=== PATIENT | female | born 1945 | race African-American/Black ===

== ENCOUNTER 2016-10-26 17:28 | Emergency (ER) ==
[2016-10-26 17:41] VITALS: BP 218/91; TEMP 98.9; BMI 34.0
[2016-10-26] MEDS ORDERED: ZESTRIL PO STA (17:47)
[2016-10-26] MEDS ORDERED: ZESTRIL ONE (18:01)
[2016-10-26 18:19] LABS: BASOPHILS % (AUTO) 0.4 % (0.0-3.0); EOSINOPHILS # (AUTO) 0.1 K/ul (0.0-0.7); EOSINOPHILS % (AUTO) 2.5 % (0.0-7.0); HEMATOCRIT 38.8 % (37.0-47.0); HEMOGLOBIN 13.4 g/dl (12.0-16.0); IMMATURE GRANULOCYTE % (AUTO) 0.2 % (0.0-5.0); LYMPHOCYTES # (AUTO) 2.5 K/uL (0.60-3.4); LYMPHOCYTES % (AUTO) 52.4 (10.0-50.0); MEAN CORPUSCULAR HEMOGLOBIN 28.9 pg (27.0-31.0); MEAN CORPUSCULAR HGB CONC 34.5 (31.8-35.4); MEAN CORPUSCULAR VOLUME 83.8 fl (81.0-99.0); MONOCYTES # (AUTO) 0.6 K/uL (0.4-2.0); MONOCYTES % (AUTO) 12.3 (0-10); NEUTROPHILS # (AUTO) 1.5 K/ul (2.0-6.9); NEUTROPHILS % (AUTO) 32.2; PLATELET COUNT 165 10^3/uL (140-440); RED BLOOD COUNT 4.63 10^6/ul (4.20-5.40); WHITE BLOOD COUNT 4.73 K/ul (4.6-10.2)
[2016-10-26 18:37] LABS: ALBUMIN 3.4 g/dL (3.4-5.0); ALBUMIN/GLOBULIN RATIO 1.03; ANION GAP 12.2; BILIRUBIN,TOTAL 0.65 mg/dL (0.00-1.20); BUN/CREATININE RATIO 21.79; CALCIUM 9.9 mg/dL (8.2-10.2); CREATININE 0.78 mg/dL (0.60-1.30); POTASSIUM 3.2 mmol/L (3.5-5.10); TOTAL PROTEIN 6.7 g/dL (5.8-8.1)
[2016-10-26 18:44] LABS: CREATINE KINASE 89 U/L
--- NOTE | 2016-10-26 18:52 | ED.PDOC ---
General ED Provider: Dr. CELIA FALCON Chief Complaint: Hypertension Stated Complaint: hypertension Time Seen by Physician: 17:29 Mode of Arrival: Walk-In Information Source: Patient Exam Limitations: No limitations Primary Care Provider: SMOOTH PATE Nursing and Triage Documentation Reviewed and Agree: Yes Cardiovascular Complaint Exam - Chest Pain Complaint/Exam Onset: Gradual Duration: blood pressure high prior to arrival had no chest pain Symptoms Are: Still present Timing: Constant Current Severity: None Pain Radiates: Reports: None Aggravating: Reports: None Alleviating: Reports: None Associated Signs and Symptoms: Reports: Hemoptysis Related Surgical History: Reports: None History of Healthcare-Acquired Pneumonia: Reports: No AMI/ACS Risk Factors: Reports: Diabetes, Obesity, Hypertension TAD Risk Factors: Reports: Hypertension Pulmonary Embolism Risk Factors: Reports: None Prior Care for this Complaint: No Recent Stress Test: No Recent Echo/LV Function: No JVD Present: No Subcutaneous Emphysema Present: No Diminshed Breath Sounds: No Reproducible Chest Wall Pain: No Bilateral Pulses Present: No Unequal Pulses Noted: No If Risk Factors for AMI/ACS Consider: EKG, Cardiac Enzymes Review of Systems - Review Of Systems Constitutional: Reports: Malaise Eyes: Reports: No symptoms Ears, Nose, Mouth, Throat: Reports: No symptoms Respiratory: Reports: No symptoms Cardiac: Reports: No symptoms GI: Reports: No symptoms : Reports: No symptoms Musculoskeletal: Reports: No symptoms Skin: Reports: No symptoms Neurological: Reports: No symptoms Endocrine: Reports: No symptoms Hematologic/Lymphatic: Reports: No symptoms All Other Systems: Reviewed and Negative Past Medical History - Past Medical History Previously Healthy: Yes Endocrine: Reports: DM 2 Cardiovascular: Reports: Hypertension Respiratory: Reports: None Hematological: Reports: None Gastrointestinal: Reports: None Genitourinary: Reports: None Neuro/Psych: Reports: None Musculoskeletal: Reports: None Cancer: Reports: None Last Menstrual Period: POST MENOPAUSAL - Surgical History General Surgical History: Reports: None - Family History Family History: Reports: None - Social History Smoking Status: Never smoker Hx Substance Use: No Alcohol Screening: None - Immunizations Tetanus Shot up to Date: No Physical Exam - Physical Exam Appearance: Well-appearing, No pain distress, Well-nourished Eyes: ERIKA, EOMI, Conjunctiva clear ENT: Ears normal, Nose normal, Oropharynx normal Respiratory: Airway patent, Breath sounds clear, Breath sounds equal, Respirations nonlabored Cardiovascular: RRR, Pulses normal, No rub, No murmur GI/: Soft, Nontender, No masses, Bowel sounds normal, No Organomegaly Musculoskeletal: Normal strength, ROM intact, No edema, No calf tenderness Skin: Warm, Dry, Normal color Neurological: Sensation intact, Motor intact, Reflexes intact, Cranial nerves intact, Alert, Oriented Psychiatric: Affect appropriate, Mood appropriate Interpretation - Pattern Changer Rate: Evan Rhythm: Sinus - EKG Interpretation Rate: Evan Rhythm: Sinus Ectopy: None [place]: NL ST Segment: Normal Critical Care Note - Critical Care Note Total Time (mins): 0 Course - Course Hematology/Chemistry: 10/26/16 18:15 10/26/16 18:15 Orders, Labs, Meds: Lab Review 10/26/16 10/26/16 18:15 18:17 WBC 4.73 RBC 4.63 Hgb 13.4 Hct 38.8 MCV 83.8 MCH 28.9 MCHC 34.5 RDW Coeff of Nallely 14.0 Plt Count 165 Immature Gran % (Auto) 0.2 Neut % (Auto) 32.2 Lymph % (Auto) 52.4 H [place] % (Auto) 12.3 H Eos % (Auto) 2.5 Baso % (Auto) 0.4 Immature Gran # (Auto) 0.0 Neut # 1.5 L Lymph # 2.5 [place] # 0.6 Eos # 0.1 Baso # 0.0 Sodium 140 Potassium 3.2 L Chloride 104 Carbon Dioxide 27 Anion Gap 12.2 BUN 17 Creatinine 0.78 Estimated GFR (MDRD) 89.00 BUN/Creatinine Ratio 21.79 Glucose 84 Calcium 9.9 Total Bilirubin 0.65 AST 31 ALT 44 Alkaline Phosphatase 72 Total Creatine Kinase 89 Troponin I < 0.0100 Total Protein 6.7 Albumin 3.4 Globulin 3.3 Albumin/Globulin Ratio 1.03 Orders Category Date Time Status EKG-(ED ONLY) Stat CARDIO 10/26/16 18:05 Ordered CBC W/ AUTO DIFF Stat LAB 10/26/16 18:15 Completed COMPREHENSIVE METABOLIC PANEL Stat LAB 10/26/16 18:15 Completed CREATINE KINASE Stat LAB 10/26/16 18:17 Completed TROPONIN I Stat LAB 10/26/16 18:17 Completed Lisinopril [Zestril] MEDS 10/26/16 18:01 Discontinued 40 mg .ROUTE .STK-MED ONE Lisinopril [Zestril] MEDS 10/26/16 17:47 Discontinued 40 mg PO ONCE STA Medications Discontinued Medications Generic Name Dose Route Start Last Admin Trade Name Vanessa PRDavid Reason Stop Dose Admin Lisinopril 40 mg 10/26/16 17:47 10/26/16 18:08 Zestril PO 10/26/16 17:48 Not Given ONCE STA Vital Signs: Temp Pulse Resp BP Pulse Ox 10/26/16 17:29 98.9 F 59 L 18 218/91 H 96 HARLEY Risk Score HARLEY Risk Score: Risk Score Odds of by 30D 0 0.1 (0.1-0.2) 1 0.3 (0.2-0.3) 2 0.4 (0.3-0.5) 3 0.7 (0.6-0.9) 4 1.2 (1.0-1.5) 5 2.2 (1.9-2.6) 6 3.0 (2.5-3.6) 7 4.8 (3.8-6.1) Departure - Departure Disposition: TSF SHORT-TRM HOSP Discharge Problem: Hypertensive urgency Instructions: Hypertension (ED) Condition: Good Allergies/Adverse Reactions: Allergies No Known Allergies Allergy (Unverified 10/26/16 17:37) Home Medications: Ambulatory Orders Amlodipine Besylate [Norvasc] 10 mg PO DAILY 10/26/16 Aspirin [Aspirin Chewable] 81 mg PO DAILY 10/26/16 Clonidine HCl 0.2 mg PO BID 10/26/16 Hydralazine HCl 50 mg PO TID 10/26/16 Losartan/Hydrochlorothiazide [Losartan-Hctz 100-12.5 mg Tab] 1 tab PO DAILY 02/01 Metoprolol Succinate [Toprol Xl] 100 mg PO DAILY 10/26/16 Saxagliptin HCl [Onglyza] 5 mg PO DAILY 10/26/16
== END 2016-10-26 19:45 | disposition short-term general hospital (02) ==
LOC: ED 17:28
DX: I16.0 Hypertensive urgency (principal); R04.2 Hemoptysis; E11.9 Type 2 diabetes mellitus without complications; E66.9 Obesity, unspecified; Z79.899 Other long term (current) drug therapy
CPT/HCPCS: 36415; 80053; 82550; 84484; 85025; 93005; 93010; 99285

== ENCOUNTER 2017-02-18 11:04 | Outpatient (CLI) ==
[2017-02-18 11:23] LABS: BASOPHILS % (AUTO) 0.6 % (0.0-3.0); EOSINOPHILS # (AUTO) 0.1 K/ul (0.0-0.7); EOSINOPHILS % (AUTO) 1.9 % (0.0-7.0); HEMATOCRIT 37.2 % (37.0-47.0); IMMATURE GRANULOCYTE % (AUTO) 0.3 % (0.0-5.0); LYMPHOCYTES # (AUTO) 1.4 K/uL (0.60-3.4); LYMPHOCYTES % (AUTO) 39.1 (10.0-50.0); MEAN CORPUSCULAR HEMOGLOBIN 29.7 pg (27.0-31.0); MEAN CORPUSCULAR HGB CONC 34.9 (31.8-35.4); MEAN CORPUSCULAR VOLUME 85.1 fl (81.0-99.0); MONOCYTES # (AUTO) 0.4 K/uL (0.4-2.0); MONOCYTES % (AUTO) 12.2 (0-10); NEUTROPHILS # (AUTO) 1.7 K/ul (2.0-6.9); NEUTROPHILS % (AUTO) 45.9; PLATELET COUNT 169 10^3/uL (140-440); RED BLOOD COUNT 4.37 10^6/ul (4.20-5.40); WHITE BLOOD COUNT 3.61 K/ul (4.6-10.2)
[2017-02-18 12:09] LABS: ALBUMIN 3.4 g/dL (3.4-5.0); ALBUMIN/GLOBULIN RATIO 0.87; ANION GAP 10.5; BILIRUBIN,TOTAL 0.77 mg/dL (0.00-1.20); BUN/CREATININE RATIO 22.78; CALCIUM 9.6 mg/dL (8.2-10.2); CHOL/HDL RATIO 3.1 (4.5-5.5); CREATININE 0.79 mg/dL (0.60-1.30); POTASSIUM 3.5 mmol/L (3.5-5.10); TOTAL PROTEIN 7.3 g/dL (5.8-8.1)
== END 2017-02-18 11:05 | disposition home or self-care (01) ==
LOC: LAB 11:04
DX: Z12.31 Encounter for screening mammogram for malignant neoplasm of breast (principal); E11.9 Type 2 diabetes mellitus without complications; I10 Essential (primary) hypertension; Z86.39 Personal history of other endocrine, nutritional and metabolic disease
CPT/HCPCS: 36415; 80053; 80061; 83036; 84443; 85025

== ENCOUNTER 2017-02-25 14:07 | Emergency (ER) ==
[2017-02-25 14:10] VITALS: BP 162/79; TEMP 97.8; BMI 35.9
--- NOTE | 2017-02-25 15:05 | ED.PDOC ---
General ED Provider: Dr. CELIA FALCON Chief Complaint: Hypertension Stated Complaint: hypertension Time Seen by Physician: 14:00 (seen with yonas ) Mode of Arrival: Wheelchair Information Source: Patient Exam Limitations: No limitations Primary Care Provider: SMOOTH PATE Referred to ED by: Other (traige B/P SYSTOLIC OF 160) Nursing and Triage Documentation Reviewed and Agree: Yes (no chest pain) Cardiovascular Complaint Exam - Hypertension Complaint/Exam Onset/Duration: AT HOME TODAY Symptoms Are: Resolved Timing: Intermittent Reported B/P Prior to Arrival: 200 SYSTOLIC Aggravating: Reports: None Alleviating: Reports: None Associated Signs and Symptoms: Denies: Chest pain, Vision changes, Anxiety, Recent stress, Headache, Numbness, Tingling, Weakness, Dizziness, Short of air, Swelling Related History: Reports: Similar episode Related Surgical History: Reports: None Cardiac Risk Factors: Reports: Hypertension Recent Change in Medications: No A/V [place]: No Papilledema Present: No JVD Present: No Carotid Bruit Present: No Femoral Pulses Bounding: No Differential Diagnoses: Hypertension Review of Systems - Review Of Systems Constitutional: Reports: No symptoms Eyes: Reports: No symptoms Ears, Nose, Mouth, Throat: Reports: No symptoms Respiratory: Reports: No symptoms Cardiac: Reports: No symptoms GI: Reports: No symptoms : Reports: No symptoms Musculoskeletal: Reports: No symptoms Skin: Reports: No symptoms Neurological: Reports: No symptoms Endocrine: Reports: No symptoms Hematologic/Lymphatic: Reports: No symptoms All Other Systems: Reviewed and Negative Past Medical History - Past Medical History Previously Healthy: Yes Endocrine: Reports: DM 2 Cardiovascular: Reports: Hypertension Respiratory: Reports: None Hematological: Reports: None Gastrointestinal: Reports: None Genitourinary: Reports: None Neuro/Psych: Reports: None Musculoskeletal: Reports: None Cancer: Reports: None Last Menstrual Period: none - Surgical History General Surgical History: Reports: None - Family History Family History: Reports: None - Social History Smoking Status: Never smoker Hx Substance Use: No Alcohol Screening: None Physical Exam - Physical Exam Appearance: Well-appearing, No pain distress, Well-nourished Eyes: ERIKA, EOMI, Conjunctiva clear ENT: Ears normal, Nose normal, Oropharynx normal Respiratory: Airway patent, Breath sounds clear, Breath sounds equal, Respirations nonlabored Cardiovascular: RRR, Pulses normal, No rub, No murmur GI/: Soft, Nontender, No masses, Bowel sounds normal, No Organomegaly Musculoskeletal: Normal strength, ROM intact, No edema, No calf tenderness Skin: Warm, Dry, Normal color Neurological: Sensation intact, Motor intact, Reflexes intact, Cranial nerves intact, Alert, Oriented Psychiatric: Affect appropriate, Mood appropriate Critical Care Note - Critical Care Note Total Time (mins): 0 Course - Course Vital Signs: Temp Pulse Resp BP Pulse Ox 02/25/17 14:07 97.8 F 67 18 162/79 H 97 HARLEY Risk Score HARLEY Risk Score: Risk Score Odds of by 30D 0 0.1 (0.1-0.2) 1 0.3 (0.2-0.3) 2 0.4 (0.3-0.5) 3 0.7 (0.6-0.9) 4 1.2 (1.0-1.5) 5 2.2 (1.9-2.6) 6 3.0 (2.5-3.6) 7 4.8 (3.8-6.1) Departure - Departure Time of Disposition: 15:04 (B/P WHILE AT ED SYSTOLIC OF 150 RANGE FREE OF PAIN ) Disposition: HOME SELF-CARE Discharge Problem: Hypertension Qualifiers: Hypertension type: unspecified Qualified Code(s): I10 - Essential (primary) hypertension Instructions: Hypertension (ED) Condition: Good Pt referred to PMD for follow-up: Yes Additional Instructions: Please call your Family Physician as soon as possible to schedule a follow-up appointment. Allergies/Adverse Reactions: Allergies No Known Allergies Allergy (Verified 02/25/17 14:10) Home Medications: Ambulatory Orders Aspirin [Aspirin Chewable] 81 mg PO DAILY 10/26/16 Clonidine HCl 0.2 mg PO BID 10/26/16 Hydralazine HCl 50 mg PO TID 10/26/16 Losartan/Hydrochlorothiazide [Losartan-Hctz 100-12.5 mg Tab] 1 tab PO DAILY 02/01 Saxagliptin HCl [Onglyza] 5 mg PO DAILY 10/26/16 Linagliptin [Tradjenta] 5 mg PO DAILY 02/25/17 Disposition Discussed With: Patient
== END 2017-02-25 15:28 | disposition home or self-care (01) ==
LOC: ED 14:07
DX: I10 Essential (primary) hypertension (principal)
CPT/HCPCS: 99282

== ENCOUNTER 2017-07-18 09:05 | Outpatient (CLI) | payer OTHER | END 2017-07-18 09:06 | disposition home or self-care (01) | LOC: LAB 09:05 | DX: Z12.31 Encounter for screening mammogram for malignant neoplasm of breast (principal); R73.9 Hyperglycemia, unspecified; I10 Essential (primary) hypertension; Z86.39 Personal history of other endocrine, nutritional and metabolic disease | CPT/HCPCS: 36415; 80053; 80061; 83036; 84443; 85025 ==

== ENCOUNTER 2018-04-29 12:39 | Emergency (ER) | payer OTHER ==
[2018-04-29 12:47] VITALS: BP 179/96; TEMP 99.7
[2018-04-29 13:19] VITALS: BMI 34.5
--- NOTE | 2018-04-29 13:21 | ED.PDOC ---
General ED Provider: Dr. MIMA SIMON Chief Complaint: Nausea/Vomiting Stated Complaint: Sick to stomach-vomited this morning after eating soup and eatting an orange/denies other complaint and no symptoms since Time Seen by Physician: 13:00 Mode of Arrival: Wheelchair Information Source: Patient Exam Limitations: No limitations Primary Care Provider: SMOOTH PATE Nursing and Triage Documentation Reviewed and Agree: Yes Does patient meet sepsis criteria?: No System Inflammatory Response Syndrome: Not Applicable Sepsis Protocol: For patient's 13 years and over: Temp is 96.8 and below OR 101 and greater Pulse >90 BPM Resp >20/minute Acutely Altered Mental Status Are patient's symptoms suggestive of a new infection, such as: -Pneumonia -Skin, Soft Tissue -Endocarditis -UTI -Bone, Joint Infection -Implantable Device -Acute Abdominal Infection -Wound Infection -Meningitis -Blood Stream Catheter Infection -Unknown GI Complaint Exam - Vomiting/Diarrhea Complaint/Exam Onset/Duration: This AM Symptoms Are: Resolved Initial Severity: Moderate Current Severity: None Character of Vomiting: Reports: Bilious Character of Diarrhea: Denies: Bloody, Watery, Mucoid, Malodorous Aggravating: Reports: Food, Liquids Alleviating: Reports: Clear liquids Associated Signs and Symptoms: Reports: Cramping. Denies: Dizziness, Light- headedness, Melena, Hematemesis, Fever, Abdominal pain Non-GI Risk Factors: Reports: None Surgical Obstruction Risk Factors: Reports: None Abdominal Findings: Present: None [place]ul Respirations Present: No Differential Diagnoses: Gastritis, Bacterial Gastroenteritis Review of Systems - Review Of Systems Constitutional: Reports: No symptoms Eyes: Reports: No symptoms Ears, Nose, Mouth, Throat: Reports: No symptoms Respiratory: Reports: No symptoms Cardiac: Reports: No symptoms GI: Reports: Diarrhea, Nausea : Reports: No symptoms Musculoskeletal: Reports: No symptoms Skin: Reports: No symptoms Neurological: Reports: No symptoms Endocrine: Reports: No symptoms Hematologic/Lymphatic: Reports: No symptoms All Other Systems: Reviewed and Negative Past Medical History - Past Medical History Previously Healthy: Yes Endocrine: Reports: DM 2 Cardiovascular: Reports: Hypertension Respiratory: Reports: None Hematological: Reports: None Gastrointestinal: Reports: None Genitourinary: Reports: None Neuro/Psych: Reports: None Musculoskeletal: Reports: None Cancer: Reports: None Last Menstrual Period: none - Surgical History General Surgical History: Reports: None - Family History Family History: Reports: None - Social History Smoking Status: Never smoker Hx Substance Use: No Alcohol Screening: None Physical Exam - Physical Exam Appearance: Well-appearing, Obese Ill-appearing: None Pain Distress: None Eyes: ERIKA, EOMI, Conjunctiva clear ENT: Ears normal, Nose normal, Oropharynx normal Neck: Supple Respiratory: Airway patent, Breath sounds clear, Breath sounds equal, Respirations nonlabored Cardiovascular: RRR, Pulses normal, No rub, No murmur GI/: Soft, Nontender, No masses, Bowel sounds normal, No Organomegaly Musculoskeletal: Normal strength, ROM intact, No edema, No calf tenderness Skin: Warm, Dry, Normal color Neurological: Sensation intact, Motor intact, Reflexes intact, Cranial nerves intact, Alert, Oriented Psychiatric: Affect appropriate, Mood appropriate Re-Evaluation - Re-Evaluation Time of Re-Evaluation: 15:00 Status: Improved Vital Signs Stable: Yes Appearance: NAD Lungs: Clear Skin: Warm and Dry Neuro: Alert and Oriented X3 CV: RRR Critical Care Note - Critical Care Note Total Time (mins): 0 Course - Course Hematology/Chemistry: 04/29/18 13:36 04/29/18 13:36 Orders, Labs, Meds: Lab Review 04/29/18 04/29/18 04/29/18 12:55 13:36 13:36 WBC 5.86 RBC 5.13 Hgb 14.7 Hct 43.7 MCV 85.2 MCH 28.7 MCHC 33.6 RDW Coeff of Nallely 14.2 Plt Count 157 Immature Gran % (Auto) 0.3 Neut % (Auto) 87.8 Lymph % (Auto) 8.2 L [place] % (Auto) 3.2 Eos % (Auto) 0.3 Baso % (Auto) 0.2 Immature Gran # (Auto) 0.0 Neut # (Auto) 5.1 Lymph # (Auto) 0.5 L [place] # (Auto) 0.2 L Eos # (Auto) 0.0 Baso # (Auto) 0.0 Sodium 141.3 Potassium 3.48 L Chloride 103.1 Carbon Dioxide 29.4 Anion Gap 12.28 BUN 18.1 H Creatinine 0.64 Estimated GFR (MDRD) 111.00 BUN/Creatinine Ratio 28.28 Glucose 153.7 H Calcium 9.43 Total Bilirubin 0.91 AST 40.1 H ALT 47.7 H Alkaline Phosphatase 90.9 Total Protein 8.28 H Albumin 4.29 Globulin 3.99 Albumin/Globulin Ratio 1.07 Urine Color Urine Clarity Urine pH Ur Specific [place] Urine Protein Urine Glucose (UA) Urine Ketones Urine Blood Urine Nitrite Urine Bilirubin Urine Urobilinogen Ur Leukocyte Esterase Urine Microscopic RBC Urine Microscopic WBC Ur Squamous Epith Cells Amorphous Sediment Influ A Molecular Assay Negative by naat Influ B Molecular Assay Negative by naat 04/29/18 14:10 WBC RBC Hgb Hct MCV MCH MCHC RDW Coeff of Nallely Plt Count Immature Gran % (Auto) Neut % (Auto) Lymph % (Auto) [place] % (Auto) Eos % (Auto) Baso % (Auto) Immature Gran # (Auto) Neut # (Auto) Lymph # (Auto) [place] # (Auto) Eos # (Auto) Baso # (Auto) Sodium Potassium Chloride Carbon Dioxide Anion Gap BUN Creatinine Estimated GFR (MDRD) BUN/Creatinine Ratio Glucose Calcium Total Bilirubin AST ALT Alkaline Phosphatase Total Protein Albumin Globulin Albumin/Globulin Ratio Urine Color Dark Urine Clarity Clear Urine pH 5.5 Ur Specific [place] >=1.030 Urine Protein 1+ Urine Glucose (UA) Negative Urine Ketones Negative Urine Blood Trace-intact Urine Nitrite Negative Urine Bilirubin Negative Urine Urobilinogen 0.2 Ur Leukocyte Esterase Trace Urine Microscopic RBC 0-2 Urine Microscopic WBC 0-2 Ur Squamous Epith Cells 2-5 Amorphous Sediment 2+ Influ A Molecular Assay Influ B Molecular Assay Orders Category Date Time Status CBC W/ AUTO DIFF Stat LAB 04/29/18 13:36 Completed CMP [COMPREHENSIVE METABOLIC PANEL] Stat LAB 04/29/18 13:36 Completed FLU A/B MOLECULAR Stat LAB 04/29/18 12:55 Completed RAPID STREP SCREEN [MOLECULAR GROUP A STREP] Stat LAB 04/29/18 12:55 Completed UA [URINALYSIS C & S IF INDICATED] Stat LAB 04/29/18 14:10 Completed Vital Signs: Temp Pulse Resp BP Pulse Ox 04/29/18 12:41 99.7 F H 73 16 179/96 H 96 Departure - Departure Time of Disposition: 15:00 Disposition: HOME SELF-CARE Discharge Problem: Vomiting, Gastritis Instructions: Acute Nausea and Vomiting (ED), Gastritis (ED) Condition: Good Pt referred to PMD for follow-up: Yes IPMP verified?: No Additional Instructions: Encouraged clear liquids Take zofran for further nausea Take Pepcid AC as needed for stomach Take Lomotil for cramping or diarrhea Allergies/Adverse Reactions: Allergies No Known Allergies Allergy (Verified 04/29/18 12:47) Home Medications: Ambulatory Orders Hydralazine HCl 50 mg PO TID 10/26/16 Losartan/Hydrochlorothiazide [Losartan-Hctz 100-12.5 mg Tab] 1 tab PO DAILY 02/01 Amlodipine Besylate [Norvasc] 10 mg PO DAILY 04/29/18 Diphenoxylate HCl/Atropine [Lomotil] 1 tab PO TID PRN #15 tablet 04/29/18 Metoprolol Succinate [Toprol Xl] 200 mg PO DAILY 04/29/18 Ondansetron [Zofran Odt] 4 mg PO Q8H PRN #7 tab.rapdis 04/29/18 Disposition Discussed With: Patient, Family
== END 2018-04-29 15:23 | disposition home or self-care (01) ==
LOC: ED 12:39
DX: K29.70 Gastritis, unspecified, without bleeding (principal); E11.9 Type 2 diabetes mellitus without complications; I10 Essential (primary) hypertension
CPT/HCPCS: 36415; 80053; 81001; 85025; 87502; 87651; 99283

== ENCOUNTER 2021-10-08 12:59 | Inpatient (IN) ==
[2021-10-08] MEDS ORDERED: SODIUM CHLORIDE 1,000 ML IV STA (13:05)
--- NOTE | 2021-10-08 13:24 | ED.PDOC ---
General ED Provider: Dr. MIMA TERESA Chief Complaint: Weakness Stated Complaint: ems resp to lift assist--patient unable to ambulate due to weakness Time Seen by Provider: 10/08/21 13:04 Mode of Arrival: Ambulance Information Source: Patient and EMT Exam Limitations: No limitations Primary Care Provider: MEDHAT BOSWELL Nursing and Triage Documentation Reviewed and Agree: Yes Does patient meet sepsis criteria?: No System Inflammatory Response Syndrome: Not Applicable Sepsis Protocol: For patient's 13 years and over: Temp is 96.8 and below OR 101 and greater Pulse >90 BPM Resp >20/minute Acutely Altered Mental Status Are patient's symptoms suggestive of a new infection, such as: -Pneumonia -Skin, Soft Tissue -Endocarditis -UTI -Bone, Joint Infection -Implantable Device -Acute Abdominal Infection -Wound Infection -Meningitis -Blood Stream Catheter Infection -Unknown Miscellaneous Complaint Exam Complex/Multi-System Complaint/Exam Onset/Duration: 24hrs Symptoms Are: Still present Episodes Lasting: Minutes Initial Severity: Mild Current Severity: Mild Location of Pain: no pain Associated Signs and Symptoms: Reports Weakness, Short of air and Cough Recent Echo/LV Function: No Respiratory Distress: None JVD Present: No Tachypnea Present: No Stridor Present: No Abdominal Findings: Present Normal findings Glascow Coma Scale (see protocol): 15 Focal Weakness: Present None Focal Sensory Loss: Present None Gait: Normal Gag Reflex Present: No Babinski Sign: Negative Right and Negative Left Skin Findings: Present Normal findings Joint Swelling Present: No In-Dwelling Device Present: No Review of Systems Review Of Systems Constitutional: Reports Weakness Eyes: Reports No symptoms Ears, Nose, Mouth, Throat: Reports No symptoms Respiratory: Reports No symptoms Cardiac: Reports No symptoms GI: Reports No symptoms : Reports No symptoms Musculoskeletal: Reports No symptoms Skin: Reports No symptoms Neurological: Reports No symptoms Endocrine: Reports No symptoms Hematologic/Lymphatic: Reports No symptoms All Other Systems: Reviewed and Negative PFSH Female Reproductive History Menstrual Hx Hysterectomy: No Hx Tubal Ligation: Yes Physical Exam Physical Exam Appearance: Reports Well-appearing Ill-appearing: None Pain Distress: None Eyes: Reports ERIKA, EOMI and Conjunctiva clear ENT: Reports Ears normal, Nose normal and Oropharynx normal Neck: Supple Respiratory: Reports Airway patent, Breath sounds clear and Breath sounds equal Cardiovascular: Reports RRR and No rub GI/: Reports Soft, Nontender and No masses Musculoskeletal: Reports Limited ROM and Limited strength Skin: Reports Warm, Dry and Normal color Neurological: Reports Sensation intact, Motor intact, Reflexes intact, Cranial nerves intact, Alert and Oriented Psychiatric: Reports Affect appropriate and Mood appropriate Interpretation Radiology Interpretation Radiology Interpretation By: Radiologist Radiology Results: Negative Exam Interpreted: CXR and CT Scan EKG Interpretation Time of EKG #1: 13:30 Rate: Normal Rhythm: Sinus Ectopy: None Tatum: NL ST Segment: Normal Interpretation: nsr Re-Evaluation Re-Evaluation Time of Re-Evaluation: 15:21 Status: Improved Vital Signs Stable: Yes Pain Level: 0 Appearance: NAD Lungs: Clear Skin: Warm and Dry Neuro: Alert and Oriented X3 CV: RRR Additional Comments: very weak--could only stand for a few secs Critical Care Note Critical Care Note Total Critical Care Time (mins): 0 Course Course Hematology/Chemistry: 10/08/21 13:20 10/08/21 13:20 Orders, Labs, Meds: Lab Review 10/08/21 10/08/21 10/08/21 13:20 13:20 13:20 WBC 7.64 RBC 4.78 Hgb 14.1 Hct 40.6 MCV 84.9 MCH 29.5 MCHC 34.7 RDW Coeff of Nallely 12.6 Plt Count 144 Immature Gran % (Auto) 0.7 Neut % (Auto) 85.8 H Lymph % (Auto) 8.1 L Frontier % (Auto) 5.0 Eos % (Auto) 0.1 Baso % (Auto) 0.3 Neut # (Auto) 6.6 Lymph # (Auto) 0.6 Frontier # (Auto) 0.4 Eos # (Auto) 0.0 Baso # (Auto) 0.0 Immature Gran # (Auto) 0.1 Puncture Site Base Excess O2 Saturation ABG pH ABG pCO2 ABG pO2 ABG HCO3 ABG Total CO2 Robin Test Hemoglobin Oxyhemoglobin Carboxyhemoglobin Total Hemoglobin FiO2 % Sodium 136.4 Potassium 3.38 L Chloride 99.4 Carbon Dioxide 24.0 Anion Gap 16.38 BUN 16.8 Creatinine 0.73 Estimated GFR (MDRD) 94.00 BUN/Creatinine Ratio 23.01 Glucose 387.0 H Lactic Acid 3.34 H Calcium 9.38 Total Bilirubin 0.87 AST 136.5 H ALT 129.9 H Alkaline Phosphatase 156.9 H Total Creatine Kinase 134.4 CK-MB (CK-2) 1.290 CK-MB (CK-2) % 0.9500 Troponin I 0.054 Total Protein 8.08 Albumin 3.85 Globulin 4.23 Albumin/Globulin Ratio 0.91 Procalcitonin Urine Color Urine Clarity Urine pH Ur Specific [place] Urine Protein Urine Glucose (UA) Urine Ketones Urine Blood Urine Nitrite Urine Bilirubin Urine Urobilinogen Ur Leukocyte Esterase Urine Microscopic RBC Urine Microscopic WBC Ur Squamous Epith Cells Urine Bacteria Urine Mucus SARS CoV-2 RNA Rapid TYLER 10/08/21 10/08/21 10/08/21 13:20 13:30 14:27 WBC RBC Hgb Hct MCV MCH MCHC RDW Coeff of Nallely Plt Count Immature Gran % (Auto) Neut % (Auto) Lymph % (Auto) Frontier % (Auto) Eos % (Auto) Baso % (Auto) Neut # (Auto) Lymph # (Auto) Frontier # (Auto) Eos # (Auto) Baso # (Auto) Immature Gran # (Auto) Puncture Site Rr Base Excess 2.2 O2 Saturation 93.3 L ABG pH 7.43 ABG pCO2 40.0 ABG pO2 66.0 L ABG HCO3 26.5 ABG Total CO2 27.7 H Robin Test Pos Hemoglobin 1.4 Oxyhemoglobin 92.4 L Carboxyhemoglobin 2.2 H Total Hemoglobin 14.7 FiO2 % 21.0 Sodium Potassium Chloride Carbon Dioxide Anion Gap BUN Creatinine Estimated GFR (MDRD) BUN/Creatinine Ratio Glucose Lactic Acid Calcium Total Bilirubin AST ALT Alkaline Phosphatase Total Creatine Kinase CK-MB (CK-2) CK-MB (CK-2) % Troponin I Total Protein Albumin Globulin Albumin/Globulin Ratio Procalcitonin 0.06 Urine Color Urine Clarity Urine pH Ur Specific [place] Urine Protein Urine Glucose (UA) Urine Ketones Urine Blood Urine Nitrite Urine Bilirubin Urine Urobilinogen Ur Leukocyte Esterase Urine Microscopic RBC Urine Microscopic WBC Ur Squamous Epith Cells Urine Bacteria Urine Mucus SARS CoV-2 RNA Rapid TYLER Negative 10/08/21 14:35 WBC RBC Hgb Hct MCV MCH MCHC RDW Coeff of Nallely Plt Count Immature Gran % (Auto) Neut % (Auto) Lymph % (Auto) Frontier % (Auto) Eos % (Auto) Baso % (Auto) Neut # (Auto) Lymph # (Auto) Frontier # (Auto) Eos # (Auto) Baso # (Auto) Immature Gran # (Auto) Puncture Site Base Excess O2 Saturation ABG pH ABG pCO2 ABG pO2 ABG HCO3 ABG Total CO2 Robin Test Hemoglobin Oxyhemoglobin Carboxyhemoglobin Total Hemoglobin FiO2 % Sodium Potassium Chloride Carbon Dioxide Anion Gap BUN Creatinine Estimated GFR (MDRD) BUN/Creatinine Ratio Glucose Lactic Acid Calcium Total Bilirubin AST ALT Alkaline Phosphatase Total Creatine Kinase CK-MB (CK-2) CK-MB (CK-2) % Troponin I Total Protein Albumin Globulin Albumin/Globulin Ratio Procalcitonin Urine Color Yellow Urine Clarity Clear Urine pH 6.0 Ur Specific [place] 1.020 Urine Protein 2+ H Urine Glucose (UA) 2+ H Urine Ketones 1+ H Urine Blood 1+ H Urine Nitrite Negative Urine Bilirubin Negative Urine Urobilinogen 0.2 Ur Leukocyte Esterase Negative Urine Microscopic RBC 2-5 Urine Microscopic WBC 2-5 Ur Squamous Epith Cells 2-5 Urine Bacteria 1+ Urine Mucus Trace SARS CoV-2 RNA Rapid TYLER Orders Category Date Time Status ABG DRAW REQUEST Stat CARDIO 10/08/21 13:05 Completed EKG-(ED ONLY) Stat CARDIO 10/08/21 13:05 Completed ACCUCHECK (ED) [ED ACCUCHECK ASSESSMENT] .ONCE EMERGENCY 10/08/21 15:10 Active ED PEDIATRIC INTENSIVE PHYSICIAN APPLIED .ONCE EMERGENCY 10/08/21 13:05 Active ED IV/MEDIPORT/POWERPORT .ONCE EMERGENCY 10/08/21 13:05 Active ABG COOX Stat LAB 10/08/21 13:30 Completed BLOOD CULTURE (ED ONLY) Stat LAB 10/08/21 13:20 Received CBC W/ AUTO DIFF Stat LAB 10/08/21 13:20 Completed COMPREHENSIVE METABOLIC PANEL Stat LAB 10/08/21 13:20 Completed CREATINE KINASE Stat LAB 10/08/21 13:20 Completed LACTIC ACID Stat LAB 10/08/21 13:20 Completed PROCALCITONIN Stat LAB 10/08/21 13:20 Completed SARS COV-2 RNA RAPID TYLER Stat LAB 10/08/21 14:27 Completed TROPONIN I Stat LAB 10/08/21 13:20 Completed URINALYSIS C & S IF INDICATED Stat LAB 10/08/21 14:35 Completed URINE CULTURE Stat LAB 10/08/21 14:35 Received 0.9 % Sodium Chloride [Saline Flush] MEDS 10/08/21 13:05 Active 1 syr IVF PRN PRN Sodium Chloride 0.9% [Sodium Chloride] 1,000 ml MEDS 10/08/21 13:[address] ABDOMEN W/O CONTRAST Stat RADS 10/08/21 14:[address] HEAD W/O CONTRAST Stat RADS 10/08/21 13:[address] PELVIS W/O CONTRAST Stat RADS 10/08/21 13:15 Completed CXR [CHEST, 1V AP ONLY] Stat RADS 10/08/21 13:05 Completed Medications Generic Name Dose Route Start Last Admin Trade Name Freq PRN Reason Stop Dose Admin Sodium Chloride 1 syr 10/08/21 13:05 10/08/21 14:38 0.9% Sodium Chloride 10 Ml Disp.Syrin IVF 1 syr PRN PRN Administration To flush IV Discontinued Medications Generic Name Dose Route Start Last Admin Trade Name Freq PRN Reason Stop Dose Admin Sodium Chloride 1,000 mls @ 1,000 mls/hr 10/08/21 13:05 10/08/21 14:00 Sodium Chloride IV 10/08/21 14:04 1,000 mls/hr BOLUS STA Administration Vital Signs: Temp Pulse Resp BP Pulse Ox 10/08/21 13:01 98.7 F 78 18 157/87 H 96 Discharge Plan Discharge Patient Disposition: PLACED OBSERVATION Discharge Problem: Heat exhaustion Prescriptions: No Action hydralazine 50 MG tablet 50 mg PO TID losartan-hydrochlorothiazide 1 EACH tablet 1 tab PO DAILY metoprolol succinate [Toprol XL] 200 MG tablet extended release 24 hr 200 mg PO DAILY amlodipine [Norvasc] 10 MG tablet 10 mg PO DAILY Tradjenta 5 mg tablet 5 mg PO DAILY Label Comments: TAKE 1 TABLET BY MOUTH EVERY DAY Did you review [place] MANAGER FURNITURE?: Not Applicable ED Provider: MIMA SANDHU Condition: Stable Physician Progress Note: []
[2021-10-08 13:36] LABS: BASOPHILS % (AUTO) 0.3 % (0.0-3.0); EOSINOPHILS % (AUTO) 0.1 % (0.0-7.0); HEMATOCRIT 40.6 % (37.0-47.0); HEMOGLOBIN 14.1 g/dl (12.0-16.0); IMMATURE GRANULOCYTE # (AUTO) 0.1 (0.0-1.0); IMMATURE GRANULOCYTE % (AUTO) 0.7 % (0.0-5.0); LYMPHOCYTES # (AUTO) 0.6 K/uL (0.60-3.4); LYMPHOCYTES % (AUTO) 8.1 (10.0-50.0); MEAN CORPUSCULAR HEMOGLOBIN 29.5 pg (27.0-31.0); MEAN CORPUSCULAR HGB CONC 34.7 (31.8-35.4); MEAN CORPUSCULAR VOLUME 84.9 fl (81.0-99.0); MONOCYTES # (AUTO) 0.4 K/uL (0.4-2.0); NEUTROPHILS # (AUTO) 6.6 K/ul (2.0-6.9); NEUTROPHILS % (AUTO) 85.8 % (42.2-75.2); PLATELET COUNT 144 10^3/uL (140-440); RDW COEFFICIENT OF VARIATION 12.6 % (11.6-14.8); RED BLOOD COUNT 4.78 10^6/ul (4.20-5.40); WHITE BLOOD COUNT 7.64 K/ul (4.6-10.2)
[2021-10-08 13:37] LABS: ABG PH 7.43 (7.35-7.45); BEecf 2.2 (-2.0-3.0); HCO3 26.5 (21-28)
[2021-10-08 13:38] LABS: COHb 2.2 (0.5-1.5); MetHb 1.4 (0-1.5); TCO2 27.7 (19-24); sO2 93.3 % (94-98); tHb 14.7 g/dl (11.7-17.4)
[2021-10-08 13:39] LABS: ABG O2 HGB 92.4 % (95-100)
[2021-10-08 13:43] LABS: ALANINE AMINOTRANSFERASE 129.9 U/L (0-35); ALBUMIN 3.85 g/dL (3.5-5.0); ALKALINE PHOSPHATASE 156.9 U/L (53-141); ASPARTATE AMINO TRANSFERASE 136.5 U/L (14-36); BILIRUBIN,TOTAL 0.87 mg/dL (0.2-1.3); BLOOD UREA NITROGEN 16.8 mg/dL (7-17); CALCIUM 9.38 mg/dL (8.4-10.2); CHLORIDE 99.4 mmol/L (98-107); CREATINE KINASE 134.4 U/L (30-135); CREATININE 0.73 mg/dL (0.60-1.30); POTASSIUM 3.38 mmol/L (3.5-5.1); SODIUM 136.4 mmol/L (134.5-145); TOTAL PROTEIN 8.08 g/dL (6.3-8.2)
[2021-10-08 13:54] LABS: TROPONIN I 0.054 ng/ml (0.0000-0.120)
[2021-10-08 13:58] LABS: CREATINE KINASE MB 1.29 ng/ml (0.0-2.38)
--- NOTE | 2021-10-08 14:21 | DI ---
EXAM: Chest, single view HISTORY: Weakness COMPARISON: 02/21/2015 FINDINGS / IMPRESSION: Cardiomediastinal countours appear stable. There is no focal pulmonary conso lidation. No pleural effusion or pneumothorax. No acute cardiopulmonary process.
--- NOTE | 2021-10-08 14:23 | CT ---
EXAM: CT pelvis without contrast 10/08/2021 HISTORY: Fall COMPARISON: None. TECHNIQUE: Axial images of the pelvis without the administration of IV contrast. Coronal and sagitta l reformats were obtained. FINDINGS: Degenerative changes in both hip joints and symphysis pubis.. Remote deformity in the coccyx. No ac juan fracture. 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 Normal appendix. Constipation. Fluid-filled nondistended small bowel segments may represent enterit is. Clinical correlation advised. The bladder is within normal limits. Atherosclerosis in the aort a and bilateral iliac arteries. Sclerotic focus in the right acetabulum measuring 1.0 cm likely repr esenting a bone island. IMPRESSION: - No acute osseous findings. - Fluid-filled nondistended small bowel segments may represent enteritis. Clinical correlation advis ed. Constipation. - Atherosclerosis in the aorta and bilateral iliac arteries. All CT scans are performed using dose optimization techniques as appropriate to the performed exam an d include at least one of the following: Automated exposure control, adjustment of the mA and/or kV according t o size, and the use of iterative reconstruction technique.
--- NOTE | 2021-10-08 14:26 | CT ---
EXAM: CT BRAIN HISTORY: Weakness TECHNIQUE: CT brain without intravenous contrast. 5-mm axial sections with Reformations. COMPARISON: None FINDINGS: There is generalized cerebral volume loss. Mild ventriculomegaly, possibly in part secondary to the volume loss. There is moderate periventricular and deep white matter low attenuation which although nonspecific is suggestive of chronic microvascular ischemic change. No evidence of recent large vess el distribution ischemic infarction. There is no intracranial mass or mass effect. No hemorrhage or subdural hematoma. Atherosclerotic disease is noted. There is no skull fracture. Mastoid process air cells are aerated. Visualized paranasal sinuses are clear. IMPRESSION: There is generalized cerebral volume loss. Mild ventriculomegaly, possibly in part secon ben to the volume loss. Significant chronic microvascular ischemic disease. No evidence of recent ischemic infarction, mass or hemorrhage. - - - - - All CT scans are performed using dose optimization techniques as appropriate to the performed exam an d include at least one of the following: Automated exposure control, adjustment of the mA and/or kV according t o size, and the use of iterative reconstruction technique.
[2021-10-08 14:55] LABS: BILIRUBIN,URINE Negative (NEGATIVE); CLARITY,URINE Clear (CLEAR); COLOR,URINE Yellow (YELLOW); GLUCOSE, URINE (UA) 2+ (NEGATIVE); KETONES,URINE 1+ (NEGATIVE); LEUKOCYTE ESTERASE ,URINE Negative (NEGATIVE); NITRITE,URINE Negative (NEGATIVE); PROTEIN,URINE 2+ (NEGATIVE); URINE, BLOOD 1+ (NEGATIVE); UROBILINOGEN,URINE 0.2 (0.2)
[2021-10-08 15:04] LABS: BACTERIA,URINE 1+ (NOT PRESENT); MUCUS,URINE TRACE (NOT PRESENT)
--- NOTE | 2021-10-08 15:29 | CT ---
EXAM: CT OF THE ABDOMEN WITHOUT CONTRAST. HISTORY: Weakness. Elevated liver function tests. COMPARISON: CT of the pelvis 10/08/2021. CT of the abdomen 05/16/2021. TECHNIQUE: Noncontrast CT images of the abdomen were obtained. Axial reconstructions with sagittal and coronal reformats were provided. CT imaging of the pelvis was performed earlier the same date. FINDINGS: Moderate cardiomegaly. Dependent atelectasis within the lung bases bilaterally with linear regions o f subsegmental atelectasis and scarring throughout the lung bases. Vascular calcifications involving the abdominal aorta without evidence of an aneurysm. No retroperitoneal hematoma. Evaluation of the solid organs of the abdomen is limited by the lack of intravenous contrast. The li sherrie, spleen, pancreas and adrenal glands are grossly unremarkable. Status post cholecystectomy. No radiopaque renal calculus, hydronephrosis or hydroureter. The visualized portions of the small bowel and colon are normal in caliber without evidence of a high -grade bowel obstruction. Moderate amount of well-formed stool within the visualized portions of the colon with scattered colonic diverticuli. No evidence of acute diverticulitis within the visualized portions of the colon. Normal-caliber appendix without evidence of acute appendicitis. Sub-centime ter mesenteric and retroperitoneal lymph nodes which are not pathologic by size criteria and nonspeci fic. Mild degenerative changes of the visualized portions of the spine. No free air or free fluid w ithin the visualized portions of the abdomen. The final report was faxed to the radiology department and emergency room at 3:24 p.m. on 10/08/2021. IMPRESSION: Cardiomegaly. Atherosclerotic vascular disease. No abnormally distended loops of bowel at the level of the abdomen. Normal-caliber appendix without evidence of acute appendicitis. Status post cholecystectomy. Colonic diverticulosis without evidence of acute diverticulitis. Grossly unremarkable appearance of the liver on the basis of noncontrast CT imaging. All CT scans are performed using dose optimization techniques as appropriate to the performed exam an d include at least one of the following: Automated exposure control, adjustment of the mA and/or kV according t o size, and the use of iterative reconstruction technique.
--- NOTE | 2021-10-08 15:37 | PCM ---
Chief Complaint Chief Complaint: "im so weak" History of Present Illness History of Present Illness: this is a 75 yr old lady with hx of htn and dm who presented to the ed by ems for weakness aNd inaBility to stand. Paramedics noted temp of over 80 in the apartment. Review of Systems Constitutional: Reports Weakness and Fatigue Eyes: Reports No symptoms Ears: Reports No symptoms Nose: Reports No symptoms Throat: Reports No symptoms Mouth: Reports No symptoms Respiratory: Reports No symptoms Cardiovascular: Reports No symptoms Gastrointestinal: Reports No symptoms Genitourinary: Reports No symptoms Neurological: Reports Weakness Musculoskeletal: Reports No symptoms Skin: Reports No symptoms Immunology: Reports No symptoms Hematology: Reports No symptoms Endocrine: Reports No symptoms Psychiatric: Reports No symptoms Habits: Denies Tobacco use, Substance use, Alcohol use or Other Allergies Allergies Allergy/AdvReac Type Severity Reaction Status Date / Time No Known Allergies Allergy Verified 10/08/21 15:34 Medications Medications: Medications Generic Name Dose Route Start Last Admin Trade Name Freq PRN Reason Stop Dose Admin Amlodipine Besylate 10 mg 10/09/21 09:00 Amlodipine Besylate 5 Mg Tablet PO DAILY KALIN Enoxaparin Sodium 30 mg 10/09/21 09:00 Enoxaparin Sodium 30 Mg/0.3 Ml Syr SUBCUT DAILY KALIN Hydralazine HCl 50 mg 10/08/21 21:00 Hydralazine Hcl 50 Mg Tablet PO TID KALIN Sodium Chloride 1,000 mls @ 60 mls/hr 10/08/21 15:30 Sodium Chloride IV .[id number] KALIN Insulin Human Regular 0 unit 10/08/21 15:27 Insulin Regular, Human 100 Unit/Ml (3ml) Vial SUBCUT PRN PRN Hyperglycemia Protocol Linagliptin 5 mg 10/09/21 09:00 Linagliptin 5 Mg Tablet PO DAILY KALIN Metoprolol Succinate 200 mg 10/09/21 09:00 Metoprolol Succinate 50 Mg Tab.Er.24h PO DAILY KALIN Non-Formulary Medication 1 tab 10/09/21 09:00 Losartan-Hydrochlorothiazide PO DAILY KALIN Sodium Chloride 1 syr 10/08/21 13:05 10/08/21 14:38 0.9% Sodium Chloride 10 Ml Disp.Syrin IVF 1 syr PRN PRN Administration To flush IV Body Composition Height: 5 ft 5 in Weight: 168 lb 13.985 oz Body Mass Index (BMI): 28.0 Vital Signs Temperature: 98.7 F Pulse Rate: 78 Respiratory Rate: 18 Blood Pressure: 142/80 O2 Sat by Pulse Oximetry: 96 Physical Examination Appearance: Reports No pain distress Ill-appearing: None Pain Distress: None Eyes: Reports ERIKA, EOMI and Conjunctiva clear ENT: Reports Ears normal, Nose normal and Oropharynx normal Neck: Supple Respiratory: Reports Airway patent, Breath sounds clear and Breath sounds equal Cardiovascular: Reports RRR, Pulses normal and No rub GI/: Reports Soft, Nontender, No masses and Bowel sounds normal Musculoskeletal: Reports ROM intact, No edema, No calf tenderness, Limited ROM and Limited strength Skin: Reports Warm, Dry and Normal color Neurological: Reports Sensation intact, Motor intact, Reflexes intact, Cranial nerves intact, Alert and Oriented Psychiatric: Reports Affect appropriate and Mood appropriate Lab/Tests/Diagnostic Imaging Lab/Tests/Diagnostic Imaging: Lab Review 10/08/21 10/08/21 10/08/21 13:20 13:20 13:20 WBC 7.64 RBC 4.78 Hgb 14.1 Hct 40.6 MCV 84.9 MCH 29.5 MCHC 34.7 RDW Coeff of Nallely 12.6 Plt Count 144 Immature Gran % (Auto) 0.7 Neut % (Auto) 85.8 H Lymph % (Auto) 8.[address] [place] % (Auto) 5.0 Eos % (Auto) 0.1 Baso % (Auto) 0.3 Neut # (Auto) 6.6 Lymph # (Auto) 0.6 [place] # (Auto) 0.4 Eos # (Auto) 0.0 Baso # (Auto) 0.0 Immature Gran # (Auto) 0.1 Puncture Site Base Excess O2 Saturation ABG pH ABG pCO2 ABG pO2 ABG HCO3 ABG Total CO2 Robin Test Hemoglobin Oxyhemoglobin Carboxyhemoglobin Total Hemoglobin FiO2 % Sodium 136.4 Potassium 3.38 L Chloride 99.4 Carbon Dioxide 24.0 Anion Gap 16.38 BUN 16.8 Creatinine 0.73 Estimated GFR (MDRD) 94.00 BUN/Creatinine Ratio 23.01 Glucose 387.0 H Lactic Acid 3.34 H Calcium 9.38 Total Bilirubin 0.87 AST 136.5 H ALT 129.9 H Alkaline Phosphatase 156.9 H Total Creatine Kinase 134.4 CK-MB (CK-2) 1.290 CK-MB (CK-2) % 0.9500 Troponin I 0.054 Total Protein 8.08 Albumin 3.85 Globulin 4.23 Albumin/Globulin Ratio 0.91 Procalcitonin Urine Color Urine Clarity Urine pH Ur Specific [place] Urine Protein Urine Glucose (UA) Urine Ketones Urine Blood Urine Nitrite Urine Bilirubin Urine Urobilinogen Ur Leukocyte Esterase Urine Microscopic RBC Urine Microscopic WBC Ur Squamous Epith Cells Urine Bacteria Urine Mucus SARS CoV-2 RNA Rapid TYLER 10/08/21 10/08/21 10/08/21 13:20 13:30 14:27 WBC RBC Hgb Hct MCV MCH MCHC RDW Coeff of Nallely Plt Count Immature Gran % (Auto) Neut % (Auto) Lymph % (Auto) [place] % (Auto) Eos % (Auto) Baso % (Auto) Neut # (Auto) Lymph # (Auto) [facility] # (Auto) Eos # (Auto) Baso # (Auto) Immature Gran # (Auto) Puncture Site Rr Base Excess 2.2 O2 Saturation 93.3 L ABG pH 7.43 ABG pCO2 40.0 ABG pO2 66.0 L ABG HCO3 26.5 ABG Total CO2 27.7 H Robin Test Pos Hemoglobin 1.4 Oxyhemoglobin 92.4 L Carboxyhemoglobin 2.2 H Total Hemoglobin 14.7 FiO2 % 21.0 Sodium Potassium Chloride Carbon Dioxide Anion Gap BUN Creatinine Estimated GFR (MDRD) BUN/Creatinine Ratio Glucose Lactic Acid Calcium Total Bilirubin AST ALT Alkaline Phosphatase Total Creatine Kinase CK-MB (CK-2) CK-MB (CK-2) % Troponin I Total Protein Albumin Globulin Albumin/Globulin Ratio Procalcitonin 0.06 Urine Color Urine Clarity Urine pH Ur Specific [place] Urine Protein Urine Glucose (UA) Urine Ketones Urine Blood Urine Nitrite Urine Bilirubin Urine Urobilinogen Ur Leukocyte Esterase Urine Microscopic RBC Urine Microscopic WBC Ur Squamous Epith Cells Urine Bacteria Urine Mucus SARS CoV-2 RNA Rapid TYLER Negative 10/08/21 14:35 WBC RBC Hgb Hct MCV MCH MCHC RDW Coeff of Nallely Plt Count Immature Gran % (Auto) Neut % (Auto) Lymph % (Auto) [place] % (Auto) Eos % (Auto) Baso % (Auto) Neut # (Auto) Lymph # (Auto) [facility] # (Auto) Eos # (Auto) Baso # (Auto) Immature Gran # (Auto) Puncture Site Base Excess O2 Saturation ABG pH ABG pCO2 ABG pO2 ABG HCO3 ABG Total CO2 Robin Test Hemoglobin Oxyhemoglobin Carboxyhemoglobin Total Hemoglobin FiO2 % Sodium Potassium Chloride Carbon Dioxide Anion Gap BUN Creatinine Estimated GFR (MDRD) BUN/Creatinine Ratio Glucose Lactic Acid Calcium Total Bilirubin AST ALT Alkaline Phosphatase Total Creatine Kinase CK-MB (CK-2) CK-MB (CK-2) % Troponin I Total Protein Albumin Globulin Albumin/Globulin Ratio Procalcitonin Urine Color Yellow Urine Clarity Clear Urine pH 6.0 Ur Specific [place] 1.020 Urine Protein 2+ H Urine Glucose (UA) 2+ H Urine Ketones 1+ H Urine Blood 1+ H Urine Nitrite Negative Urine Bilirubin Negative Urine Urobilinogen 0.2 Ur Leukocyte Esterase Negative Urine Microscopic RBC 2-5 Urine Microscopic WBC 2-5 Ur Squamous Epith Cells 2-5 Urine Bacteria 1+ Urine Mucus Trace SARS CoV-2 RNA Rapid TYLER Orders Category Date Time Status OBSERVATION [PLACE PATIENT OBSERVATION] .TO MEDSURG ADMISSION 10/08/21 15:23 Active (MONITORED BED) ABG DRAW REQUEST Stat CARDIO 10/08/21 13:05 Completed EKG-(ED ONLY) Stat CARDIO 10/08/21 13:05 Completed EKG-(IP & OP ONLY) DAILY CARDIO 10/09/21 06:00 Ordered EKG-(IP & OP ONLY) DAILY CARDIO 10/10/21 06:00 Ordered ACTIVITY .Up With Assistance CARE 10/08/21 15:24 Active BLOOD GLUCOSE MONITORING (MED/SURG) 0630,1100,1700,2100 CARE 10/08/21 15:25 Active CASE MANAGEMENT CONSULT ONCE CARE 10/08/21 15:24 Active GIVE HS SNACK 2100 CARE 10/08/21 15:25 Active INTAKE & OUTPUT Q8HR CARE 10/08/21 15:24 Active IP: INSERT SALINE LOCK ONCE CARE 10/08/21 15:24 Active Neuro Check [NEUROLOGICAL CHECKS] Q4HR CARE 10/08/21 15:29 Active TELEMETRY MONITORING TELE CARE 10/08/21 15:23 Active VITAL SIGNS Q8HR CARE 10/08/21 15:24 Active ADA 1800 FLAVIO. DIET DIETARY 10/08/21 Dinner Ordered HS SNACK DIETARY 10/08/21 Dinner Ordered ACCUCHECK (ED) [ED ACCUCHECK ASSESSMENT] .ONCE EMERGENCY 10/08/21 15:10 Active ED PLYWOOD PATCHER APPLIED .ONCE EMERGENCY 10/08/21 13:05 Active ED IV/MEDIPORT/POWERPORT .ONCE EMERGENCY 10/08/21 13:05 Active ABG COOX Stat LAB 10/08/21 13:30 Completed BLOOD CULTURE (ED ONLY) Stat LAB 10/08/21 13:20 Received CBC W/ AUTO DIFF DAILY@0600 LAB 10/09/21 06:00 Ordered CBC W/ AUTO DIFF DAILY@0600 LAB 10/10/21 06:00 Ordered CBC W/ AUTO DIFF Stat LAB 10/08/21 13:20 Completed COMPREHENSIVE METABOLIC PANEL DAILY@0600 LAB 10/09/21 06:00 Ordered COMPREHENSIVE METABOLIC PANEL DAILY@0600 LAB 10/10/21 06:00 Ordered COMPREHENSIVE METABOLIC PANEL Stat LAB 10/08/21 13:20 Completed CREATINE KINASE Stat LAB 10/08/21 13:20 Completed LACTIC ACID DAILY@0600 LAB 10/09/21 06:00 Ordered LACTIC ACID Stat LAB 10/08/21 13:20 Completed PROCALCITONIN Stat LAB 10/08/21 13:20 Completed SARS COV-2 RNA RAPID TYLER Stat LAB 10/08/21 14:27 Completed TROPONIN I Q8H LAB 10/08/21 21:30 Ordered TROPONIN I Q8H LAB 10/09/21 05:30 Ordered TROPONIN I Stat LAB 10/08/21 13:20 Completed URINALYSIS C & S IF INDICATED Stat LAB 10/08/21 14:35 Completed URINE CULTURE Stat LAB 10/08/21 14:35 Received 0.9 % Sodium Chloride [Saline Flush] MEDS 10/08/21 13:05 Active 1 syr IVF PRN PRN Amlodipine Besylate [Norvasc] MEDS 10/09/21 09:00 Ordered 10 mg PO DAILY Enoxaparin Sodium [Lovenox] MEDS 10/09/21 09:00 Ordered 30 mg SUBCUT DAILY Hydralazine HCl [Apresoline] MEDS 10/08/21 21:00 Ordered 50 mg PO TID Insulin Regular, Human [Humulin R] MEDS 10/08/21 15:27 Ordered See Protocol SUBCUT PRN PRN Linagliptin [Tradjenta] MEDS 10/09/21 09:00 Ordered 5 mg PO DAILY Metoprolol Succinate [Toprol Xl] MEDS 10/09/21 09:00 Ordered 200 mg PO DAILY Sodium Chloride 0.9% [Sodium Chloride] 1,000 ml MEDS 10/08/21 15:30 Ordered IV 60 mls/hr Sodium Chloride 0.9% [Sodium Chloride] 1,000 ml MEDS 10/08/21 13:05 Discontinued IV BOLUS losartan-hydrochlorothiazide MEDS 10/09/21 09:00 Ordered 1 tab PO DAILY RESUSCITATION STATUS Routine OTHERS 10/08/21 15:[address] ABDOMEN W/O CONTRAST Stat RADS 10/08/21 14:[address] HEAD W/O CONTRAST Stat RADS 10/08/21 13:[address] PELVIS W/O CONTRAST Stat RADS 10/08/21 13:15 Completed CXR [CHEST, 1V AP ONLY] Stat RADS 10/08/21 13:05 Completed Medications Generic Name Dose Route Start Last Admin Trade Name Freq PRN Reason Stop Dose Admin Amlodipine Besylate 10 mg 10/09/21 09:00 Amlodipine Besylate 5 Mg Tablet PO DAILY KALIN Enoxaparin Sodium 30 mg 10/09/21 09:00 Enoxaparin Sodium 30 Mg/0.3 Ml Syr SUBCUT DAILY KALIN Hydralazine HCl 50 mg 10/08/21 21:00 Hydralazine Hcl 50 Mg Tablet PO TID KALIN Sodium Chloride 1,000 mls @ 60 mls/hr 10/08/21 15:30 Sodium Chloride IV .[id number] KALIN Insulin Human Regular 0 unit 10/08/21 15:27 Insulin Regular, Human 100 Unit/Ml (3ml) Vial SUBCUT PRN PRN Hyperglycemia Protocol Linagliptin 5 mg 10/09/21 09:00 Linagliptin 5 Mg Tablet PO DAILY KALIN Metoprolol Succinate 200 mg 10/09/21 09:00 Metoprolol Succinate 50 Mg Tab.Er.24h PO DAILY KALIN Non-Formulary Medication 1 tab 10/09/21 09:00 Losartan-Hydrochlorothiazide PO DAILY KALIN Sodium Chloride 1 syr 10/08/21 13:05 10/08/21 14:38 0.9% Sodium Chloride 10 Ml Disp.Syrin IVF 1 syr PRN PRN Administration To flush IV Discontinued Medications Generic Name Dose Route Start Last Admin Trade Name Freq PRN Reason Stop Dose Admin Sodium Chloride 1,000 mls @ 1,000 mls/hr 10/08/21 13:05 10/08/21 14:00 Sodium Chloride IV 10/08/21 14:04 1,000 mls/hr BOLUS STA Administration Assessment (1) Heat exhaustion: Status: Acute Code(s): T67.5XXA - Heat exhaustion, unspecified, initial encounter SNOMED Code(s): 13185778 Assessment: after iv fluids and reassessment she could not stand but for a few secs without assistance--she would benefit from obs--iv hyhdration and monitoring labs---ct scans unrevealing. Plan Plan: gentle hydration, monitor labs, ?physical therapy if not improving
[2021-10-08] MEDS: SODIUM CHLORIDE 1,000 ML IV SCH (15:57)
[2021-10-08 16:37] VITALS: BMI 29.3
[2021-10-08] MEDS ORDERED: HUMULIN R IVP ONE (17:21)
[2021-10-08] MEDS: HUMULIN R SUBCUT PRN ×2 (18:50→20:22)
[2021-10-08] MEDS ORDERED: ROCEPHIN 1 GM/50 ML D5W 1 GM/50 ML BAG IV SCH (20:00)
[2021-10-08] MEDS: APRESOLINE PO SCH (20:22)
[2021-10-09 04:59] LABS: BASOPHILS % (AUTO) 0.3 % (0.0-3.0); EOSINOPHILS # (AUTO) 0.1 K/ul (0.0-0.7); EOSINOPHILS % (AUTO) 0.8 % (0.0-7.0); HEMATOCRIT 41.5 % (37.0-47.0); HEMOGLOBIN 14.4 g/dl (12.0-16.0); IMMATURE GRANULOCYTE % (AUTO) 0.5 % (0.0-5.0); LYMPHOCYTES % (AUTO) 30.9 (10.0-50.0); MEAN CORPUSCULAR HEMOGLOBIN 29.8 pg (27.0-31.0); MEAN CORPUSCULAR HGB CONC 34.7 (31.8-35.4); MEAN CORPUSCULAR VOLUME 85.7 fl (81.0-99.0); MONOCYTES # (AUTO) 0.7 K/uL (0.4-2.0); MONOCYTES % (AUTO) 10.2 (0-10); NEUTROPHILS # (AUTO) 3.7 K/ul (2.0-6.9); NEUTROPHILS % (AUTO) 57.3 % (42.2-75.2); PLATELET COUNT 137 10^3/uL (140-440); RDW COEFFICIENT OF VARIATION 12.9 % (11.6-14.8); RED BLOOD COUNT 4.84 10^6/ul (4.20-5.40); WHITE BLOOD COUNT 6.38 K/ul (4.6-10.2)
[2021-10-09 05:11] LABS: ALANINE AMINOTRANSFERASE 121.8 U/L (0-35); ALBUMIN 3.37 g/dL (3.5-5.0); ALKALINE PHOSPHATASE 116.5 U/L (53-141); ASPARTATE AMINO TRANSFERASE 115.3 U/L (14-36); BILIRUBIN,TOTAL 0.73 mg/dL (0.2-1.3); BLOOD UREA NITROGEN 13.9 mg/dL (7-17); CALCIUM 8.92 mg/dL (8.4-10.2); CARBON DIOXIDE 27.4 mmol/L (22-30.0); CHLORIDE 101.3 mmol/L (98-107); CREATININE 0.55 mg/dL (0.60-1.30); GLUCOSE 114.7 mg/dL (74-106); SODIUM 136.5 mmol/L (134.5-145); TOTAL PROTEIN 7.45 g/dL (6.3-8.2)
[2021-10-09 05:22] LABS: TROPONIN I 0.103 ng/ml (0.0000-0.120)
[2021-10-09 05:38] LABS: POTASSIUM 2.62 mmol/L (3.5-5.1)
[2021-10-09] MEDS ORDERED: POTASSIUM CHLORIDE 10 MEQ/100 ML PREMIX 10 MEQ/100 ML BAG IV STA (05:41)
[2021-10-09] MEDS ORDERED: K-DUR PO STA (05:41)
[2021-10-09] MEDS: TOPROL XL PO SCH (07:59)
[2021-10-09] MEDS: VITAMIN D PO SCH (07:59)
[2021-10-09] MEDS: HYDROCHLOROTHIAZIDE PO SCH (08:00)
[2021-10-09] MEDS: NORVASC PO SCH (08:00)
[2021-10-09] MEDS: COZAAR PO SCH (08:00)
[2021-10-09] MEDS: APRESOLINE PO SCH ×2 (08:00→15:16)
[2021-10-09] MEDS: TRADJENTA PO SCH (08:00)
[2021-10-09] MEDS: LOVENOX SUBCUT SCH (08:01)
[2021-10-09] MEDS: SODIUM CHLORIDE 1,000 ML IV SCH ×2 (08:09→23:58)
--- NOTE | 2021-10-09 08:12 | PCM.PROG ---
Date Seen by Provider: 10/09/21 Time Seen by Provider: 08:09 Subjective: Patient feeling better this morning. She has not gotten out of bed yet. Objective: Vitals: T=98.1 F, P=56, R=16, GA=935/73, SPO2=97 Alert and conversant. Appears well. HEENT: [] Neck: [] Lungs: [] Clear. Breath tones equal. CVS: []No gallop or peripheral edema. Abdomen: []Soft, nontender. BS present. Extremities: [] Neurological: []No motor deficits. Skin: [] Lab/Tests/Diagnostic Imaging: [] (1) Heat exhaustion: Status: Acute Code(s): T67.5XXA - Heat exhaustion, unspecified, initial encounter SNOMED Code(s): 94193222 Assessment: Potassium 2.62 this morning. Patient has received an oral dose of potassium and is receiving an IV potassium rider. Repeat potassium level to be checked later. Increase activity. Plan: As above.
[2021-10-09] MEDS ORDERED: LOSARTAN HYDROCHLOROTHIAZIDE PO SCH (09:00)
[2021-10-09] MEDS: HUMULIN R SUBCUT PRN ×3 (11:10→20:30)
[2021-10-09] MEDS ORDERED: K-DUR PO ONE ×2 (12:00→17:00)
[2021-10-09] MEDS ORDERED: APRESOLINE PO STA (18:29)
[2021-10-09] MEDS: ROCEPHIN 1 GM/50 ML D5W 1 GM/50 ML BAG IV SCH (20:29)
[2021-10-10 05:30] LABS: BASOPHILS % (AUTO) 0.8 % (0.0-3.0); EOSINOPHILS # (AUTO) 0.1 K/ul (0.0-0.7); EOSINOPHILS % (AUTO) 1.8 % (0.0-7.0); HEMATOCRIT 42.2 % (37.0-47.0); HEMOGLOBIN 14.4 g/dl (12.0-16.0); IMMATURE GRANULOCYTE % (AUTO) 0.8 % (0.0-5.0); LYMPHOCYTES # (AUTO) 1.4 K/uL (0.60-3.4); LYMPHOCYTES % (AUTO) 34.3 (10.0-50.0); MEAN CORPUSCULAR HEMOGLOBIN 29.5 pg (27.0-31.0); MEAN CORPUSCULAR HGB CONC 34.1 (31.8-35.4); MEAN CORPUSCULAR VOLUME 86.5 fl (81.0-99.0); MONOCYTES # (AUTO) 0.5 K/uL (0.4-2.0); MONOCYTES % (AUTO) 11.9 (0-10); NEUTROPHILS % (AUTO) 50.4 % (42.2-75.2); PLATELET COUNT 135 10^3/uL (140-440); RDW COEFFICIENT OF VARIATION 13.2 % (11.6-14.8); RED BLOOD COUNT 4.88 10^6/ul (4.20-5.40); WHITE BLOOD COUNT 3.94 K/ul (4.6-10.2)
[2021-10-10 05:42] LABS: ALBUMIN 3.33 g/dL (3.5-5.0); ALKALINE PHOSPHATASE 108.4 U/L (53-141); ASPARTATE AMINO TRANSFERASE 156.5 U/L (14-36); BILIRUBIN,TOTAL 0.88 mg/dL (0.2-1.3); BLOOD UREA NITROGEN 9.6 mg/dL (7-17); CARBON DIOXIDE 23.7 mmol/L (22-30.0); CHLORIDE 103.4 mmol/L (98-107); CREATININE 0.57 mg/dL (0.60-1.30); GLUCOSE 205.9 mg/dL (74-106); POTASSIUM 3.56 mmol/L (3.5-5.1); SODIUM 135.7 mmol/L (134.5-145); TOTAL PROTEIN 7.4 g/dL (6.3-8.2)
[2021-10-10] MEDS: HUMULIN R SUBCUT PRN ×4 (06:06→20:30)
[2021-10-10] MEDS: VITAMIN D PO SCH (08:13)
[2021-10-10] MEDS: APRESOLINE PO SCH ×3 (08:13→20:30)
[2021-10-10] MEDS: TRADJENTA PO SCH (08:13)
[2021-10-10] MEDS: COZAAR PO SCH (08:13)
[2021-10-10] MEDS: NORVASC PO SCH (08:13)
[2021-10-10] MEDS: HYDROCHLOROTHIAZIDE PO SCH (08:14)
[2021-10-10] MEDS: TOPROL XL PO SCH (08:14)
[2021-10-10] MEDS: LOVENOX SUBCUT SCH (08:17)
[2021-10-10] MEDS: SODIUM CHLORIDE 1,000 ML IV SCH (16:29)
[2021-10-10] MEDS: ROCEPHIN 1 GM/50 ML D5W 1 GM/50 ML BAG IV SCH (20:30)
--- NOTE | 2021-10-10 21:41 | PCM.PROG ---
Date Seen by Provider: 10/10/21 Time Seen by Provider: 11:25 Subjective: Pt had no acute complaints. She wanted to go home. no acute SOB or chest pain Objective: Vitals: T=99.1 F, P=69, R=16, YF=017/87, SPO2=96 HEENT: []wnl. pt was sitting comfortably in the bed. She sat up by herself but had to be helped to remain forward. Per nursing, pt has been walking using a rollator. She has been seen by PT. Neck: []supple. Lungs: []chest was clear. CVS: []rrr Abdomen: []benign Extremities: []no acute abnormality Neurological: []non-focal Skin: []no rash Lab/Tests/Diagnostic Imaging: [] (1) Heat exhaustion: Status: Acute Code(s): T67.5XXA - Heat exhaustion, unspecified, initial encounter SNOMED Code(s): 25425349 (2) Episode of generalized weakness: Status: Acute Code(s): R53.1 - Weakness SNOMED Code(s): 96283243 Plan: See the PT review notes. 2. Will plan for d/c home on 10/11/2021 after ensuring pt ambulation is safe for home.
[2021-10-11] MEDS ORDERED: VASOTEC IV IVP ONE (03:25)
[2021-10-11 05:51] LABS: BASOPHILS % (AUTO) 0.5 % (0.0-3.0); EOSINOPHILS # (AUTO) 0.1 K/ul (0.0-0.7); EOSINOPHILS % (AUTO) 2.3 % (0.0-7.0); HEMATOCRIT 42.5 % (37.0-47.0); HEMOGLOBIN 14.7 g/dl (12.0-16.0); IMMATURE GRANULOCYTE % (AUTO) 0.5 % (0.0-5.0); LYMPHOCYTES # (AUTO) 1.7 K/uL (0.60-3.4); LYMPHOCYTES % (AUTO) 42.6 (10.0-50.0); MEAN CORPUSCULAR HEMOGLOBIN 29.8 pg (27.0-31.0); MEAN CORPUSCULAR HGB CONC 34.6 (31.8-35.4); MEAN CORPUSCULAR VOLUME 86.2 fl (81.0-99.0); MONOCYTES # (AUTO) 0.7 K/uL (0.4-2.0); MONOCYTES % (AUTO) 16.7 (0-10); NEUTROPHILS # (AUTO) 1.5 K/ul (2.0-6.9); NEUTROPHILS % (AUTO) 37.4 % (42.2-75.2); PLATELET COUNT 135 10^3/uL (140-440); RDW COEFFICIENT OF VARIATION 13.3 % (11.6-14.8); RED BLOOD COUNT 4.93 10^6/ul (4.20-5.40)
[2021-10-11 06:13] LABS: ALANINE AMINOTRANSFERASE 153.1 U/L (0-35); ALBUMIN 3.35 g/dL (3.5-5.0); ALKALINE PHOSPHATASE 125.4 U/L (53-141); ASPARTATE AMINO TRANSFERASE 170.8 U/L (14-36); BILIRUBIN,TOTAL 0.91 mg/dL (0.2-1.3); BLOOD UREA NITROGEN 9.6 mg/dL (7-17); CALCIUM 8.93 mg/dL (8.4-10.2); CARBON DIOXIDE 26.4 mmol/L (22-30.0); CHLORIDE 102.4 mmol/L (98-107); CREATININE 0.54 mg/dL (0.60-1.30); GLUCOSE 205.1 mg/dL (74-106); POTASSIUM 3.22 mmol/L (3.5-5.1); SODIUM 135.5 mmol/L (134.5-145); TOTAL PROTEIN 7.52 g/dL (6.3-8.2)
[2021-10-11] MEDS: HUMULIN R SUBCUT PRN ×4 (06:25→20:21)
[2021-10-11] MEDS: VITAMIN D PO SCH (08:50)
[2021-10-11] MEDS: TOPROL XL PO SCH (08:51)
[2021-10-11] MEDS: APRESOLINE PO SCH ×3 (08:51→20:20)
[2021-10-11] MEDS: NORVASC PO SCH (08:51)
[2021-10-11] MEDS: TRADJENTA PO SCH (08:51)
[2021-10-11] MEDS: HYDROCHLOROTHIAZIDE PO SCH (08:51)
[2021-10-11] MEDS: LOVENOX SUBCUT SCH (08:52)
[2021-10-11] MEDS: COZAAR PO SCH (08:52)
[2021-10-11] MEDS ORDERED: K-DUR PO ONE (11:05)
[2021-10-11] MEDS: CATAPRES PO SCH ×2 (13:20→21:38)
[2021-10-11] MEDS: SODIUM CHLORIDE 1,000 ML IV SCH (15:05)
--- NOTE | 2021-10-11 22:26 | PCM.PROG ---
Date Seen by Provider: 10/11/21 Time Seen by Provider: 11:05 Subjective: Pt has been ambulating with assistance. She wanted to go home. Objective: Vitals: T=98.2 F, P=62, R=16, HO=837/69, SPO2=98 HEENT: []wnl Neck: []supple. pt was sitting comfortably in the chair. Lungs: []chest was clear. CVS: []RRR Abdomen: []benign Extremities: []no acute abnormality. Neurological: []non-focal Skin: []wnl Lab/Tests/Diagnostic Imaging: [] (1) Heat exhaustion: Status: Acute Code(s): T67.5XXA - Heat exhaustion, unspecified, initial encounter SNOMED Code(s): 73244526 (2) Episode of generalized weakness: Status: Acute Code(s): R53.1 - Weakness SNOMED Code(s): 21098342 Plan: I. Change to Inpatient-----to seek PT and OT continued hospital care and plan for home with PT and OT. 2. Continue regimen. 3. Will discuss DM and HTN Rx with pt PMD on 10/12/2021.
[2021-10-12 05:26] LABS: BASOPHILS % (AUTO) 0.8 % (0.0-3.0); EOSINOPHILS # (AUTO) 0.2 K/ul (0.0-0.7); EOSINOPHILS % (AUTO) 4.3 % (0.0-7.0); HEMATOCRIT 41.2 % (37.0-47.0); IMMATURE GRANULOCYTE # (AUTO) 0.1 (0.0-1.0); IMMATURE GRANULOCYTE % (AUTO) 1.6 % (0.0-5.0); LYMPHOCYTES # (AUTO) 1.6 K/uL (0.60-3.4); LYMPHOCYTES % (AUTO) 42.6 (10.0-50.0); MEAN CORPUSCULAR HEMOGLOBIN 29.5 pg (27.0-31.0); MEAN CORPUSCULAR VOLUME 86.9 fl (81.0-99.0); MONOCYTES # (AUTO) 0.4 K/uL (0.4-2.0); MONOCYTES % (AUTO) 11.7 (0-10); NEUTROPHILS # (AUTO) 1.5 K/ul (2.0-6.9); PLATELET COUNT 133 10^3/uL (140-440); RDW COEFFICIENT OF VARIATION 13.3 % (11.6-14.8); RED BLOOD COUNT 4.74 10^6/ul (4.20-5.40); WHITE BLOOD COUNT 3.76 K/ul (4.6-10.2)
[2021-10-12 05:46] LABS: ALANINE AMINOTRANSFERASE 163.6 U/L (0-35); ALBUMIN 3.21 g/dL (3.5-5.0); ALKALINE PHOSPHATASE 102.9 U/L (53-141); ASPARTATE AMINO TRANSFERASE 204.7 U/L (14-36); BILIRUBIN,TOTAL 0.75 mg/dL (0.2-1.3); CALCIUM 9.54 mg/dL (8.4-10.2); CARBON DIOXIDE 25.6 mmol/L (22-30.0); CHLORIDE 99.9 mmol/L (98-107); CREATININE 0.84 mg/dL (0.60-1.30); GLUCOSE 139.6 mg/dL (74-106); POTASSIUM 3.79 mmol/L (3.5-5.1); SODIUM 132.8 mmol/L (134.5-145); TOTAL PROTEIN 7.28 g/dL (6.3-8.2)
[2021-10-12] MEDS: SODIUM CHLORIDE 1,000 ML IV SCH (08:18)
[2021-10-12] MEDS: CATAPRES PO SCH (08:22)
[2021-10-12] MEDS: HYDROCHLOROTHIAZIDE PO SCH (08:27)
[2021-10-12] MEDS: TRADJENTA PO SCH (08:27)
[2021-10-12] MEDS: K-DUR PO SCH (08:28)
[2021-10-12] MEDS: APRESOLINE PO SCH ×3 (08:28→20:21)
[2021-10-12] MEDS: VITAMIN D PO SCH (08:28)
[2021-10-12] MEDS: NORVASC PO SCH (08:28)
[2021-10-12] MEDS: TOPROL XL PO SCH (08:28)
[2021-10-12] MEDS: COZAAR PO SCH (08:28)
[2021-10-12] MEDS: LOVENOX SUBCUT SCH (08:28)
[2021-10-12] MEDS ORDERED: CATAPRES PO PRN (10:48)
[2021-10-12] MEDS: HUMULIN R SUBCUT PRN ×3 (11:45→20:21)
--- NOTE | 2021-10-12 12:01 | RS.PTINEVL ---
Subjective - Patient information Date of Evaluation: 10/12/21 Date of Arrival on Unit: 10/08/21 Admitted From:: Home Diagnosis: fall at home, heat exhaustion Usual Living Arrangement: Alone Living Arrangement Comments: daughter assists when needed, pt states that she has rollator at home but wasn't using it most of the time. Home Environment: House, Stairs (few) Medical History: Hypertension, Diabetes, Arthritis Medications: see chart Subjective Information/ Patient Comments:: pt states that she is hoping to go home today. She states that she knows she will need to use her rollator all the time when she gets home. pt's daughter reports she will be taking pt back and forth to her sister's home in [place]. She reports pt will not need home health because they will be gone a lot. - Level of function Prior to this admission, the patient could do the following:: Independent Selfcare, Independent Ambulation, Perform Director Of Mechanical Engineering/Cooking Abilities prior to this admission: pt's daughter assisted her with shower prior to admission. pt reports she did do some light cooking before she got sick. Current Level of Function: Partially Dependent Current Equipment Used at Home: glucometer, shower chair, potty chair, rollator, lift chair Interventions - Objective Patient Orientation: Person, Place Current Interventions: IV's, Telemetry Observation: pt with min edema BLE Range of Motion - ROM Right Upper Extremity AROM: WFL's Left Upper Extremity AROM: WFL's Right Lower Extremity AROM: WFL's Left Lower Extremity AROM: WFL's Muscle Strength - Muscle Strength Right Upper Extremity Strength: Mild Weakness (grossly 4/5) Left Upper Extremity Strength: Mild Weakness (grossly 4/5) Right Lower Extremity Strength: Mild Weakness (hip flex 4-/5, knee flex/ext 4/5, ankle DF/PF 4/5) Left Lower Extremity Strength: Mild Weakness (hip flex 4-/5, knee flex/ext 4/5, ankle DF/PF 4/5) Sensation - Sensation Right Upper Extremity Sensation: Intact/Normal Left Upper Extremity Sensation: Intact/Normal Right Lower Extremity Sensation: Intact/Normal Left Lower Extremity Sensation: Intact/Normal Palpation Palpation Findings: None/Normal Balance - Sitting Balance and Reactions Static Sitting Balance: Good (good-) Dynamic Sitting Balance: Fair - Standing Balance and Reactions Static Standing Balance: Poor (poor+) Dynamic Standing Balance: Poor Standing Equilibrium Reactions: Delayed Left, Delayed Right Standing Protective Reactions: Delayed Left, Delayed Right Functional Mobility - Bed Mobility Comments:: pt seen in bedside chair. - Transfers Sit to Stand: Min Assist (min + from recliner) Stand to Sit: CGA Comments:: CGA x 1 on/off commode - Safety Awareness Safety Awareness: Fair JOVANNI INDEX SCORE: n/a Ambulation - Ambulation Assistive Device Used: Rollator Orthotic/Prosthetic Device: No Distance: 100ft Assistance needed with Ambulation: CGA Gait Deviations: Forward posture, Short stride Ambulation Comments: pt requires step by step verbal cues for turning with rollator Factors Affecting Ambulation: Decreased Balance, Weakness, Decreased Coordination, Cognitive Status, Limited Endurance Treatment time - Units charged Gait trainin - Time with patient Length of Evaluation: 18 Total treatment time: 31 Patient Education - Education Patient Education: Activity Modification, Education of Plan of Care Teaching Recipient: Patient, Family Teaching Methods: Discussion Comments: discussion regarding POC and recommend HH PT. Daughter states HH won't work because they will be gone to pt's daughter in [place]' home. Assessment - Assessment Problem List:: Decreased level of function, Requires training/education, Decreased safety/Risk of falls, Weakness, Cognitive status limits abilities Rehab Potential: Good Further Therapy Indicated?: Yes Candidate for Swing Bed for Therapy Services?: Feel pt may not be a candidate for swing bed due to pt close to prior level of function. Evaluation Complexity: HISTORY: Medium, EXAM OF BODY SYSTEMS: Medium, CLINICAL PRESENTATION: Medium, CLINICAL DECISION MAKING: Medium Patient's Goal(s): " Go home" Short Term Goals GOAL #1: pt independent with rolling and scooting up in bed. Goal to be met by: 10/14/21 GOAL #2: Transfer sup to/from sit CGA Goal to be met by: 10/14/21 GOAL #3: Sit to/from stand CGA to SBA from bed Goal to be met by: 10/14/21 GOAL #4: pt amb with rollator 120ft with CGA with improved posture. Goal to be met by: 10/14/21 GOAL #5: Improve BLE strength 4 to 4+/5 Goal to be met by: 10/14/21 Detention Goals GOAL #1: pt transfer sup to/from sit to/from stand SBA Goal to be met by: 10/16/21 GOAL #2: pt amb with rollator functional household distances SBA. Goal to be met by: 10/16/21 GOAL #3: pt ascend/descend 2-3 steps w handrail CGA Goal to be met by: 10/16/21 Plan Plan of Care: Therapeutic EX, Therapeutic Activity Other:: gait training Frequency of Treatment: 1-2 X day, as tolerated Duration of Treatment: 5 days Anticipated Discharge Destination: Home Treatment Diagnosis (ICD 10 Codes): impaired balance R 26.81. difficulty walking R 26.2. weakness M62.81. falls R 29.6 Has the Physician been added for Co-signature?: Yes
[2021-10-13 06:24] LABS: BASOPHILS % (AUTO) 0.5 % (0.0-3.0); EOSINOPHILS # (AUTO) 0.1 K/ul (0.0-0.7); HEMATOCRIT 42.4 % (37.0-47.0); HEMOGLOBIN 14.3 g/dl (12.0-16.0); IMMATURE GRANULOCYTE % (AUTO) 0.8 % (0.0-5.0); LYMPHOCYTES # (AUTO) 1.8 K/uL (0.60-3.4); LYMPHOCYTES % (AUTO) 49.1 (10.0-50.0); MEAN CORPUSCULAR HEMOGLOBIN 29.2 pg (27.0-31.0); MEAN CORPUSCULAR HGB CONC 33.7 (31.8-35.4); MEAN CORPUSCULAR VOLUME 86.7 fl (81.0-99.0); MONOCYTES # (AUTO) 0.5 K/uL (0.4-2.0); MONOCYTES % (AUTO) 12.9 (0-10); NEUTROPHILS # (AUTO) 1.3 K/ul (2.0-6.9); NEUTROPHILS % (AUTO) 33.7 % (42.2-75.2); PLATELET COUNT 147 10^3/uL (140-440); RDW COEFFICIENT OF VARIATION 13.3 % (11.6-14.8); RED BLOOD COUNT 4.89 10^6/ul (4.20-5.40); WHITE BLOOD COUNT 3.71 K/ul (4.6-10.2)
[2021-10-13 06:36] LABS: ALBUMIN 3.28 g/dL (3.5-5.0); ALKALINE PHOSPHATASE 117.5 U/L (53-141); ASPARTATE AMINO TRANSFERASE 225.6 U/L (14-36); BILIRUBIN,TOTAL 0.86 mg/dL (0.2-1.3); BLOOD UREA NITROGEN 20.3 mg/dL (7-17); CALCIUM 9.16 mg/dL (8.4-10.2); CARBON DIOXIDE 26.1 mmol/L (22-30.0); CHLORIDE 101.4 mmol/L (98-107); CREATININE 0.71 mg/dL (0.60-1.30); GLUCOSE 246.4 mg/dL (74-106); POTASSIUM 3.9 mmol/L (3.5-5.1); SODIUM 134.4 mmol/L (134.5-145); TOTAL PROTEIN 7.26 g/dL (6.3-8.2)
[2021-10-13] MEDS: HUMULIN R SUBCUT PRN ×2 (07:02→11:28)
[2021-10-13] MEDS: TRADJENTA PO SCH (09:47)
[2021-10-13] MEDS: APRESOLINE PO SCH ×2 (09:48→14:53)
[2021-10-13] MEDS: VITAMIN D PO SCH (09:48)
[2021-10-13] MEDS: TOPROL XL PO SCH (09:48)
[2021-10-13] MEDS: K-DUR PO SCH (09:48)
[2021-10-13] MEDS: COZAAR PO SCH (09:48)
[2021-10-13] MEDS: HYDROCHLOROTHIAZIDE PO SCH (09:49)
[2021-10-13] MEDS: NORVASC PO SCH (09:49)
[2021-10-13] MEDS: LOVENOX SUBCUT SCH (09:50)
--- NOTE | 2021-10-13 10:29 | RS.OTINEVL ---
Subjective - Patient information Date of Evaluation: 10/13/21 Date of Arrival on Unit: 10/08/21 Admitted From:: Home Diagnosis: Heat exhaustion, debilitation, weakness PRECAUTIONS: Fall risk Usual Living Arrangement: Alone Living Arrangement Comments: daughter assists when needed, pt states that she has rollator at home but wasn't using it most of the time. Home Environment: House, Stairs (few) Medical History: Hypertension, Diabetes, Arthritis Medications: see chart Subjective Information/ Patient Comments:: Pt reports her daughter will be here this morning and will be staying with her some. - Level of function Prior to this admission, the patient could do the following:: Independent Selfcare, Independent Ambulation, Perform Interpreter/Cooking Abilities prior to this admission: Pt reports she does not drive. Pt was able to dress herself. Pt was able to complete toileting independently. Pt was able to fix herself something to eat. Current Level of Function: Partially Dependent Comments: Pt has dementia and requires verbal cues to complete positioning with Rollator to wash her hands. Pt has episodes that she has to take extra time to complete ADLS due to cognition. Current Equipment Used at Home: glucometer, shower chair, potty chair, rollator, lift chair Pain Assessment - Pain Pain Score: 0 Interventions - Objective Patient Orientation: Person, Place Current Interventions: IV's Observation: Pt appears disoriented at times and requires verbal cues to complete tasks. Pt was independent with toilet transfer and personal hygiene. Pt required verbal cues and tactile cues to get rollator close to sink to wash her hands. Pt independent with washing hands. Pt ambulates slowly with rollator walker and did well with applying brakes to the rollator before sitting in chair. Interventions - ROM Right Upper Extremity AROM: WFL's Left Upper Extremity AROM: WFL's - Strength Right Upper Extremity Strength: Mild Weakness Left Upper Extremity Strength: Mild Weakness - Sensation Right Upper Extremity Sensation: Intact/Normal Left Upper Extremity Sensation: Intact/Normal Balance - Sitting Balance Static Sitting Balance: Normal Dynamic Sitting Balance: Normal - Standing Balance Static Standing Balance: Fair Dynamic Standing Balance: Fair ADL Skills - Self Feeding Self Feeding: Independent - Grooming Grooming: Supervision, Verbal Cues - Bathing Bathing UE: Supervision Bathing LE: CGA - Dressing Dressing UE: Supervision Dressing LE: CGA, Verbal Cues - Toilet Management Toilet Hygiene: Independent Toilet Clothing Management: Independent Functional Mobility - Transfers Sit to Stand: Independent Stand to Sit: Independent Stand Pivot Transfers: Supervision - Ambulation Weight Bearing Status: FWB Assistive Device Used: Rollator Assistance needed with Ambulation: CGA, 1 person assist - Safety Awareness Safety Awareness: Fair JOVANNI INDEX SCORE: . Additional Treatment Performed - Time with patient Length of Evaluation: 18 Total treatment time: 18 Activities Do you enjoy playing games?: Yes Would you be interested in leaving your room for activities?: Yes Would you enjoy group activities?: Yes Do you have difficulty with your vision?: No Patient Interests:: Watching Television Patient Education Patient Education: Home Safety, Education of Plan of Care Teaching Recipient: Patient Teaching Methods: Discussion, Demonstration Assessment Problem List:: Decreased level of function, Requires training/education, De creased safety/Risk of falls, Cognitive status limits abilities Rehab Potential: Fair Evaluation Complexity: HISTORY: Medium, EXAM OF BODY SYSTEMS: Medium, CLINICAL DECISION MAKING: Medium Patient's Goal(s): Pt is ready to go home today. Short Term Goals - Goals GOAL 1: Pt to be independent with transfers from chair to toilet with rollator. Goal to be met by: 10/16/21 Senior Care Goals GOAL 1: Pt to be safe with ADLS with verbal cues from her daughters. Goal to be met by: 10/17/21 Plan Plan of Care: Therapeutic EX (Pt is not safe to live alone due to dementia. ), Therapeutic Activity, Self-Care/Home Management Duration of Treatment: One Time Treatment Anticipated Discharge Destination: Home Treatment Diagnosis (ICD 10 Codes): M62.81 Weakness, Z74.1 Need for assistance with personal care, Has the Physician been added for Co-signature?: Yes
--- NOTE | 2021-10-13 10:32 | PCM.PROG ---
Date Seen by Provider: 10/13/21 Time Seen by Provider: 08:45 Subjective: Patient slowly regaining her strength. She is tolerating her diet. Patient has no complaints. She reports that she is going to go home with her daughter. Objective: Vitals: T=97.8 F, P=60, R=16, ON=007/64, SPO2=99 Patient alert and conversant. HEENT: []Oral mucosa moist. Neck: [] Lungs: [] Clear. Breath sounds equal. CVS: []RRR. No peripheral edema. Abdomen: [] Extremities: [] Neurological: []No sensory or motor deficits. Generalized weakness. Skin: [] Lab/Tests/Diagnostic Imaging: [] (1) Heat exhaustion: Status: Acute Code(s): T67.5XXA - Heat exhaustion, unspecified, initial encounter SNOMED Code(s): 23151166 (2) Episode of generalized weakness: Status: Acute Code(s): R53.1 - Weakness SNOMED Code(s): 12432343 (3) Hypokalemia: Status: Acute Code(s): E87.6 - Hypokalemia SNOMED Code(s): 13072794 Plan: Serum potassium repleted and normal. Dehydration resolved. Patient is making slow, but steady progress with her strengthening and conditioning. She is going to go home with her daughter.
--- NOTE | 2021-10-13 10:40 | PCM.DC ---
Final Diagnosis: Heat exhaustion Hypokalemia Generalized weakness Physical Exam Appearance: No pain distress, Thin and Other (Pleasant, somewhat frail elderly lady who is alert. She is mildly confused. She is chronically ill appearing.) Ill-appearing: None Pain Distress: None Eyes: ERIKA and EOMI ENT: Nose normal, Oropharynx normal and Other (Oral mucosa moist.) Neck: Supple Respiratory: Airway patent, Breath sounds clear and Breath sounds equal Cardiovascular: RRR, No rub and No murmur GI/: Soft, Nontender, No masses and Bowel sounds normal Musculoskeletal: ROM intact and No edema Skin: Warm, Dry and Normal color Neurological: Sensation intact, Motor intact, Alert and Oriented Psychiatric: Affect appropriate and Mood appropriate (1) Heat exhaustion: Status: Acute Code(s): T67.5XXA - Heat exhaustion, unspecified, initial encounter SNOMED Code(s): 34930456 (2) Episode of generalized weakness: Status: Acute Code(s): R53.1 - Weakness SNOMED Code(s): 62972696 (3) Hypokalemia: Status: Acute Code(s): E87.6 - Hypokalemia SNOMED Code(s): 00835619 Reason for Hospitalization: Patient admitted with heat exhaustion, generalized weakness, dehydration and hypokalemia. Prognosis/Condition at Discharge: Condition at discharge with stable. Medications at Discharge: Ambulatory Orders Medication Instructions Recorded hydralazine 50 mg tablet 50 mg PO TID 10/26/16 losartan 100 1 tab PO DAILY 10/26/16 mg-hydrochlorothiazide 12.5 mg tablet amlodipine 10 mg tablet (Norvasc) 10 mg PO DAILY 04/29/18 metoprolol succinate 200 mg 200 mg PO DAILY 04/29/18 tablet,extended release 24 hr (Toprol XL) cholecalciferol (vitamin D3) 10 400 unit PO DAILY 10/08/21 mcg (400 unit) capsule linagliptin 5 mg tablet (Tradjenta) 5 mg PO DAILY 10/08/21 Lab/Diagnostics: Potassium 3.9 Follow-ups: Patient to follow up with her primary care provider next week. Discharge Disposition: Home Hospital Course: Patient received IV fluids and potassium supplements to correct her dehydration and hypokalemia. She also had PT/OT evaluation for her generalized weakness. She progressed well clinically during her stay without any complications. Plan: Patient to be discharged to the care of her daughter. She is going to follow up with her PCP next week.
[2021-10-13 14:51] VITALS: BP 140/67; TEMP 98.3
== END 2021-10-13 15:23 | disposition home or self-care (01) | DRG 923 ==
LOC: ED 12:59 → MEDSURG A 12:59
PROVIDERS: ADMIT Family Medicine; ATTEND Surgery
DX: Y92.9 Unspecified place or not applicable; R06.02 Shortness of breath; Z79.899 Other long term (current) drug therapy; E87.6 Hypokalemia; Z20.822 Contact with and (suspected) exposure to COVID-19; Y93.9 Activity, unspecified; R26.81 Unsteadiness on feet; R05.9 Cough, unspecified; Z74.2 Need for assistance at home and no other household member able to render care; Z51.81 Encounter for therapeutic drug level monitoring; Y99.9 Unspecified external cause status; T67.5XXA Heat exhaustion, unspecified, initial encounter; R53.1 Weakness